=== PATIENT | female | born 1950 | race Caucasian/White ===

== ENCOUNTER 2019-03-25 21:28 | Emergency (ER) | payer SELFPAY ==
[~2019-03-25] VITALS: Ht 152.4 cm; Wt 49.9 kg
[2019-03-25 21:45] VITALS: BP 143/73
--- NOTE | 2019-03-25 21:50 | NUR ---
PT AMBULATED BACK TO LOBBY[facility]ONDA
[2019-03-25] MEDS ORDERED: LACTULOSE 20 GM/30 ML UDC PO ONE (22:25)
[2019-03-25] MEDS ORDERED: NITROFURANTOIN 100 MG CAP PO ONE (22:25)
[2019-03-25 22:45] VITALS: BP 140/65
== END 2019-03-25 22:46 | disposition home or self-care (01) ==
LOC: MED 21:28
DX: N39.0 Urinary tract infection, site not specified (principal); K59.00 Constipation, unspecified
CPT/HCPCS: 81002; 99283